=== PATIENT | female | born 2000 | race Caucasian/White ===

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

== ENCOUNTER 2019-09-21 20:36 | Inpatient (IN) ==
[2019-09-21 21:21] LABS: Cocaine Ur Negative (NEGATIVE); Urine Barbiturate Negative (NEGATIVE); Urine Benzodiazepines Negative (NEGATIVE); Urine Opiates Negative (NEGATIVE); Urine PCP Negative (NEGATIVE); Urine THC Negative (NEGATIVE)
[2019-09-21] MEDS ORDERED: RINGER'S SOLUTION,LACTATED 1,000 ML IV PRN (23:04)
[2019-09-21] MEDS ORDERED: OXYTOCIN 20 UNITS in RINGER'S SOLUTION,LACTATED 1,000 ML IV ONE (23:04)
[2019-09-21] MEDS ORDERED: ceFAZolin SODIUM/DEXTROSE,ISO 2 GM/50 ML BAG IV ONE (23:04)
[2019-09-21] MEDS: RINGER'S SOLUTION,LACTATED 1,000 ML IV PRN (23:20)
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
[2019-09-21] MEDS ORDERED: ONDANSETRON HCL/PF 2 MG/ML VIAL ONE (23:39)
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
[2019-09-21] MEDS ORDERED: BUPIVACAINE HCL/EPINEPHRINE 50 ML VIAL ONE (23:40)
[2019-09-22] MEDS: RINGER'S SOLUTION,LACTATED 1,000 ML IV PRN (00:32)
[2019-09-22] MEDS ORDERED: IBUPROFEN 800 MG TABLET PO PRN ×2 (01:54)
[2019-09-22] MEDS ORDERED: BISACODYL 10 MG SUPP.RECT RC PRN (01:54)
[2019-09-22] MEDS ORDERED: ONDANSETRON HCL/PF 2 MG/ML VIAL IV PRN (01:54)
[2019-09-22] MEDS ORDERED: SIMETHICONE 80 MG TAB.CHEW PO PRN (01:54)
[2019-09-22] MEDS ORDERED: SENNOSIDES 8.6 MG TABLET PO PRN (01:54)
--- NOTE | 2019-09-22 02:05 | ANES ---
Post Anesthesia Assessment - Vital Signs Vitals: Last Vital Signs Temp 36.2 C 09/22/19 02:00 Pulse 94 09/22/19 02:00 Resp 20 09/22/19 02:00 BP 129/69 09/22/19 02:00 Pulse Ox 100 09/22/19 02:00 Airway Patency: Normal - Mental Status Level Of Consciousness: Awake - Pain Level Pain Score: 0 - N/V Assessment Nausea/Vomiting Presence: None Dehydration:: No
--- NOTE | 2019-09-22 02:05 | ANES ---
Post Anesthesia Discharge - Transfer of Care Transfer of Care handoff given to nurse: Yes - Discharge from PACU Discharge from PACU when meets criteria: Yes - Discharge to ASU Discharge to ASU-no complications/pt stable: Yes
--- NOTE | 2019-09-22 02:06 | OR ---
Operative Report - Dictated Report Narrative: Indication: 19-year-old 3 para 0-1-1-2 with prior section presents to labor and delivery in labor requesting sterilization. status: Planned Pre Operative Diagnosis: 38-week intrauterine . Prior section. Labor. Desires sterilization via bilateral tubal ligation. Post Operative Diagnosis: Same. Procedure: Repeat low transverse section. Bilateral tubal ligation. Lysis of adhesions. Surgeon: Krystyna Murphy DO Boatbuilder Supervisor: OR Staff Anesthesia: Spinal, Estimated Blood Loss: 300 mL Urine Output: 300 mL clear urine Fluids Replacement: 1700 mL Drains: Partida to gravity Surgical Complications: None Specimens: Placenta to freezer Findings: Male born at 0034 on 09/22/2021 with Apgars 9 and 9, weighing 2947 g in cephalic presentation. Normal-appearing tubes and ovaries. Dense band adhesions (2 to 3 cm thick) of the upper uterine wall to the inferior surface of the anterior abdominal wall and bladder. Thin band adhesions of omentum to anterior abdominal wall and bladder. Thickened fascia. Technique: The patient was taken to the operating room and placed in dorsal supine position with a left lateral tilt. After adequate spinal anesthesia, partida catheter inserted, SCDs placed, and 2 g of Ancef given preoperatively, the abdominal cavity was entered using sharp and blunt dissection. Adhesions were taken down carefully to avoid injury to the bladder. Two rolled laps were placed in the pericolic gutters on either side of the uterus. A transverse incision was made in the lower uterine segment and extended laterally and upwardly with digital traction. Clear fluid was noted upon amniotomy. The was delivered easily. The cord was clamped and cut and was handed off to awaiting jewelry sorter. The placenta was allowed to deliver spontaneously. The uterus was cleared of clot and debris. Uterine incision was closed with 0 Vicryl using a running stitch. A second imbricating layer was placed. This uterine serosa was sewn over the area of band adhesions using 3-0 Vicryl in a running stitch. 2 [id number] sutures were placed in the midline and then the left side of the incision to provide excellent hemostasis. The rolled laps were removed from the abdominal cavitiy. The right fallopian tube was identified and followed out to the fimbriated end. Using Kleppinger's attached to an audible meter, a 2 cm segment of the fallopian tube was coagulated approximately 2 cm from the cornual region. The exact same was done on the patient's left side. The peritoneum was closed with a running 3-0 Monocryl. The same suture was used to approximate the rectus and pyramidalis muscles. The fascia was closed with a running 0 Vicryl. The subcutaneous layer was closed with a running 3-0 Monocryl. The same suture was used to approximate the subdermal layer. The skin was closed with a running 4-0 Monocryl and Dermabond. Sponge, lap, needle, and instrument count were correct x 2. Disposition: To post anesthesia care unit in good condition History for MU History for MU Definition: * The number of deliveries resulting in a live the patient experienced prior to current hospitalization * The previous delivery of live twins or any live multiple gestation is considered one live event. *If primagravida or nulliparous is documented select zero for the number of previous live births. Live Events: Live Events: 2
[2019-09-22] MEDS: oxyCODONE HCL/ACETAMINOPHEN 1 TAB TABLET PO PRN ×2 (02:12→12:21)
[2019-09-22] MEDS: ENOXAPARIN SODIUM 40 MG/0.4 ML SYRG SC SCH (10:11)
[2019-09-22] MEDS: DOCUSATE SODIUM 100 MG CAPSULE PO SCH ×3 (10:12→21:05)
[2019-09-22] MEDS ORDERED: IBUPROFEN 100 MG/5 ML UDC PO PRN (13:22)
[2019-09-22] MEDS ORDERED: IBUPROFEN 100 MG/5 ML ORAL.SUSP PO PRN ×2 (14:06→14:15)
[2019-09-22] MEDS: FERROUS SULFATE 325 MG TABLET PO SCH (15:40)
[2019-09-22] MEDS: IBUPROFEN 100 MG/5 ML ORAL.SUSP PO PRN (19:54)
[2019-09-23] MEDS: IBUPROFEN 100 MG/5 ML ORAL.SUSP PO PRN ×2 (01:41→11:35)
[2019-09-23] MEDS ORDERED: PRENATAL VITS96/IRON FUM/FOLIC 1 TAB TABLET PO SCH (09:00)
[2019-09-23] MEDS ORDERED: SERTRALINE HCL 50 MG TABLET PO SCH (09:00)
[2019-09-23] MEDS: FERROUS SULFATE 325 MG TABLET PO SCH (09:43)
[2019-09-23] MEDS: DOCUSATE SODIUM 100 MG CAPSULE PO SCH ×2 (09:58→20:35)
[2019-09-23] MEDS: ENOXAPARIN SODIUM 40 MG/0.4 ML SYRG SC SCH (10:57)
--- NOTE | 2019-09-23 12:51 | PN ---
Subjective - Date and Time Seen Date: 09/23/19 Time: 12:50 Objective - Vitals Vitals: Last Vital Signs Temp 36.3 C 09/23/19 09:58 Pulse 95 09/23/19 09:58 Resp 16 09/23/19 09:58 BP 103/62 09/23/19 09:58 Pulse Ox 99 09/23/19 09:58 Patient denies complaints. Tolerating regular diet. Ambulating without difficulty. Pain well controlled. Lochia wnl. Abdomen - soft, appropriately tender Incision -clean, dry, intact uterus - firm, at umbilicus -1 no calf tenderness Impression: Post op day #1 s/p repeat section. Bilateral salpingectomy Plan: Continue routine post-operative/ care Cauti Physician Documentation - Urinary Catheter Management Urethral (Lorenz) Date of Insertion: 09/22/19 Time of Insertion: 00:15 Assessment/Plan - Problems/Diagnosis (1) Labor established Problem: Acute (2) Previous section Problem: Chronic (3) History of prior with IUGR Problem: Inactive (4) History of gestational hypertension Problem: Inactive (5) History of delivery Problem: Inactive (6) Anxiety Problem: Chronic (7) Sterilization Problem: Acute
[2019-09-23] MEDS ORDERED: IBUPROFEN 100 MG/5 ML UDC PO ONE (20:20)
[2019-09-23] MEDS ORDERED: IBUPROFEN 100 MG/5 ML UDC PO PRN (20:30)
[2019-09-24] MEDS ORDERED: IBUPROFEN 100 MG/5 ML ORAL.SUSP PO PRN (07:15)
[2019-09-24 08:07] VITALS: BP 125/69
--- NOTE | 2019-09-24 09:19 | PN ---
Subjective - Date and Time Seen Date: 09/24/19 Time: 09:17 Objective - Vitals Vitals: Last Vital Signs Temp 36.4 C 09/24/19 08:06 Pulse 92 09/24/19 08:06 Resp 16 09/24/19 08:06 BP 125/69 09/24/19 08:06 Pulse Ox 99 09/24/19 08:06 Patient denies complaints. Ambulating well. Tolerating regular diet. Pain well controlled. Lochia wnl. Abdomen - soft, appropriately tender Incision -clean, dry, intact uterus - firm, at umbilicus -3 no calf tenderness Impression: Post op day #2 s/p repeat section. Bilateral tubal ligation. Plan: Continue routine post-operative/ care. Routine discharge instructions Cauti Physician Documentation - Urinary Catheter Management Urethral (Lorenz) Date of Insertion: 09/22/19 Time of Insertion: 00:15 Assessment/Plan - Problems/Diagnosis (1) Labor established Problem: Acute (2) Previous section Problem: Chronic (3) History of prior with IUGR Problem: Inactive (4) History of gestational hypertension Problem: Inactive (5) History of delivery Problem: Inactive (6) Anxiety Problem: Chronic (7) Sterilization Problem: Acute
[2019-09-24] MEDS: ENOXAPARIN SODIUM 40 MG/0.4 ML SYRG SC SCH (09:48)
== END 2019-09-24 12:30 | disposition home or self-care (01) | DRG 785 ==
LOC: OBCLINIC 20:36 → OB 22:59
PROVIDERS: ADMIT Obstetrics & Gynecology; ATTEND Obstetrics & Gynecology
CPT/HCPCS: 59025; 80307; C1765; J2405